=== PATIENT | female | born 1965 | race Caucasian/White ===

== ENCOUNTER 2020-09-08 06:51 | Day surgery (SDC) | payer OTHER ==
[2020-09-08] MEDS ORDERED: BACTERIOSTATIC SODIUM CHLORIDE 0.9% 30 ML VIAL INFILTRATI ONE (07:37)
[2020-09-08] MEDS ORDERED: LACTATED RINGERS 1,000 ML ONE (07:37)
--- NOTE | 2020-09-08 07:37 | Anesthesia Day of Surgery ---
Anesthesia Day of Surgery - Day of Surgery Patient Examined: Yes Patient H&P Reviewed: Yes Patient is NPO: Yes
--- NOTE | 2020-09-08 07:38 | Anesthesia Consultation ---
Anesthesia Consult and Med Hx Date of service: 09/08/20 - Airway Anesthetic Teeth Evaluation: Crowns (Broken crown) ROM Head & Neck: Adequate Mental/Hyoid Distance: Adequate Mallampati Class: Class I Intubation Access Assessment: Good - Pre-Operative Health Status ASA Pre-Surgery Classification: ASA2 Proposed Anesthetic Plan: General - Pulmonary Hx Smoking: Yes - Central Nervous System Hx Psychiatric Problems: No - Hematic Hx Anemia: No Hx Sickle Cell Disease: No - Other Systems Hx Alcohol Use: Yes (OCC) Hx Substance Use: No Hx Cancer: No - Additional Comments Anesthesia Medical History Comments: Son present at bedside to translate
[2020-09-08] MEDS ORDERED: HYDROmorphone 1 MG/1 ML INJ IV PRN ×2 (08:00)
[2020-09-08] MEDS ORDERED: ONDANSETRON 4 MG/2 ML INJ IV PRN (08:00)
[2020-09-08] MEDS ORDERED: MIDAZOLAM 2 MG/2 ML INJ IV NR (08:00)
[2020-09-08] MEDS ORDERED: LACTATED RINGERS 1,000 ML IV SCH (08:00)
[2020-09-08] MEDS ORDERED: fentaNYL 100 MCG/2 ML INJ ONE (08:45)
[2020-09-08] MEDS ORDERED: LIDOCAINE PF 100 MG/5 ML (CARDIAC SYRINGE) IV ONE (08:45)
[2020-09-08] MEDS ORDERED: propofoL 200 MG/20 ML VIAL IV ONE (08:46)
[2020-09-08] MEDS ORDERED: ONDANSETRON 4 MG/2 ML INJ ONE (08:49)
[2020-09-08] MEDS ORDERED: dexAMETHasone 20 MG/5 ML VIAL ONE (08:49)
[2020-09-08] MEDS ORDERED: SODIUM CHLORIDE 0.9% IRR 1,500 ML BOTTLE IR ONE (09:22)
[2020-09-08] MEDS ORDERED: ePHEDrine SULFATE 50 MG/1 ML INJ ONE (09:29)
--- NOTE | 2020-09-08 09:43 | Operative Report ---
Operative Report Operative Report: Preoperative diagnosis: Left recurrent Bartholin's gland abscess Postoperative diagnosis: Same Procedure: Marsupialization of left Bartholin gland abscess with cyst wall biopsy Surgeon: Arabella Cordova MD Assist: None Anesthesia: GETA Complications: None IV fluids: 1 L EBL: Less than 10ml Urine output: 100 cc clear urine Drains: None Findings: Left Bartholin's abscess, no appreciable masses on pelvic exam Procedure: Patient was counseled in preop holding about risks benefits possible complications as well as alternatives to the procedure. Informed consent was obtained. She was taken to the operating room where she received excellent general endotracheal anesthesia. She was then placed in the dorsolithotomy position,prepped and draped in a sterile fashion. A timeout was verified. Using a red rubber catheter 100 cc clear urine was obtained. Attention turned to the left Bartholin's gland. An incision was made to allow for complete drainage of the abscess. After adequate irrigation, a small piece of cyst wall was obtained and sent to pathology. Hemostasis was achieved with cautery. The incision was then marsupialized with running figure of 3-0 Vicryl. There was excellent hemostasis at the completion of the procedure. All sponge needle instrument counts were correct x2. Patient was extubated taken to PACU in stable condition. There were no complications. Patient's son was notified of her intraoperative course prior to extubation. She will follow-up in the outpatient setting. See Art CHAPIN
[2020-09-08] MEDS ORDERED: KETOROLAC 30 MG/1 ML INJ ONE (10:00)
[2020-09-08 10:59] VITALS: BP 111/76
--- NOTE | 2020-09-08 14:30 | Post Anesthesia Evaluation ---
- Post Anesthesia Evaluation Patient Participated: Yes Airway Patent: Yes Stable Respiratory Function: Yes Nausea/Vomiting: No Temp > 96.8F: Yes Pain Manageable: Yes Adequeate Hydration: Yes Anesthesia Complications: No Block Receding Appropriately: Not Applicable Patient on Ventilator: No
== END 2020-09-08 10:40 | disposition home or self-care (01) ==
LOC: OR 06:51
PROVIDERS: ATTEND Obstetrics & Gynecology
DX: N75.1 Abscess of Bartholin's gland (principal); F17.210 Nicotine dependence, cigarettes, uncomplicated; Z79.899 Other long term (current) drug therapy; Z88.8 Allergy status to other drugs, medicaments and biological substances; Z87.440 Personal history of urinary (tract) infections; Z98.51 Tubal ligation status; Z98.890 Other specified postprocedural states
CPT/HCPCS: 56440; 88304; J1100; J1885; J2001; J2405; J2704; J3010; J7120